=== PATIENT | female | born 1930 | race Caucasian/White ===

== ENCOUNTER 2018-10-18 15:29 | Emergency (ER) | payer MEDICARE, OTHER ==
[~2018-10-18] VITALS: Ht 149.9 cm; Wt 54.0 kg
[~2018-10-18 15:29] MED LIST: CLOP75TA15 PO; COLE625T9 PO; DENO60DI SQ; DULO60CA45 PO; FLUT100D IH; LOSA25TA27 PO; METO25TA6 PO; PRAV10TA PO; PRED-170 PO; PREG50CA PO; TIOT18CA4 IH
--- NOTE | 2018-10-18 15:38 | NUR ---
PT IS IN ROOM #1B. DR SEVERINO EVALUATED THE PT.
[2018-10-18] MEDS ORDERED: LORA0.5T PO (16:09)
[2018-10-18] MEDS ORDERED: CYAN-10 IJ (16:09)
[2018-10-18] MEDS ORDERED: ATOR10TA PO (16:09)
[2018-10-18] MEDS ORDERED: IRON150C5 PO (16:09)
[2018-10-18] MEDS ORDERED: LORA1TAB PO (16:09)
[2018-10-18] MEDS ORDERED: ASPI-605 PO (16:09)
[2018-10-18] MEDS ORDERED: HYDROMORPHONE 1 MG/1 ML DISP.SYRIN ONE (16:14)
[2018-10-18] MEDS ORDERED: ONDANSETRON 4 MG/2 ML VIAL ONE (16:14)
[2018-10-18] MEDS ORDERED: ONDANSETRON 4 MG/2 ML VIAL IV ONE (16:15)
[2018-10-18] MEDS ORDERED: HYDROMORPHONE 1 MG/1 ML DISP.SYRIN IV ONE (16:15)
--- NOTE | 2018-10-18 16:21 | NUR ---
PT WAS D/C'D TO HOME. D/C INSTRUCTIONS GIVEN TO THE PT AND TO HER JASONER.
[2018-10-18 16:22] VITALS: BP 146/77
== END 2018-10-18 16:24 | disposition home or self-care (01) ==
LOC: ER 15:29
DX: S42.302A Unspecified fracture of shaft of humerus, left arm, initial encounter for closed fracture (principal); I10 Essential (primary) hypertension; J44.9 Chronic obstructive pulmonary disease, unspecified; Z88.8 Allergy status to other drugs, medicaments and biological substances; Z79.82 Long term (current) use of aspirin; Z79.51 Long term (current) use of inhaled steroids; Z79.01 Long term (current) use of anticoagulants; Z79.899 Other long term (current) drug therapy; W18.30XA Fall on same level, unspecified, initial encounter; Y93.89 Activity, other specified; Y92.89 Other specified places as the place of occurrence of the external cause; Y99.8 Other external cause status
CPT/HCPCS: 29105; 71045; 73060; 96374; 96375; 99283; J1170; J2405; A4663